=== PATIENT | male | born 1985 | race African-American/Black ===

== ENCOUNTER 2017-11-16 18:49 | Emergency (ER) | payer OTHER ==
[~2017-11-16] VITALS: Ht 190.5 cm; Wt 124.7 kg
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
[2017-11-16] MEDS: KETOROLAC 30 MG/ML VIAL IVP ONE ×2 (19:03→19:35)
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
[2017-11-16 19:58] VITALS: BP 116/89
== END 2017-11-16 19:53 | disposition home or self-care (01) ==
LOC: ER 18:56
DX: S09.90XA Unspecified injury of head, initial encounter (principal); S80.01XA Contusion of right knee, initial encounter; V49.40XA Driver injured in collision with unspecified motor vehicles in traffic accident, initial encounter
CPT/HCPCS: 70450; 72125; 73030; 73562; 96374; 99283